=== PATIENT | female | born 2000 ===

== ENCOUNTER 2022-07-18 06:03 | Inpatient (IN) | payer OTHER ==
[~2022-07-18] VITALS: Ht 162.6 cm; Wt 70.3 kg
[2022-07-18] MEDS ORDERED: PRENATAL TABLE1 EAC1 PO (07:10)
[2022-07-22] MEDS ORDERED: FLUCONAZOLE150 MG (08:09)
== END 2022-07-22 16:45 | disposition home or self-care (01) | DRG 807 ==
LOC: LDR 06:03 → OB/GYN 07-19 03:15
PROVIDERS: ADMIT Specialist; ATTEND Specialist
PROC: 4A1HXCZ Monitoring of Products of Conception, Cardiac Rate, External Approach (ICD-10-PCS; 2022-07-18)
PROC: 10E0XZZ Delivery of Products of Conception, External Approach (ICD-10-PCS; principal; 2022-07-19)
PROC: 0W8NXZZ Division of Female Perineum, External Approach (ICD-10-PCS; 2022-07-19)
DX: O80 Encounter for full-term uncomplicated delivery (principal); Z37.0 Single live birth; Z3A.39 39 weeks gestation of pregnancy; Z20.822 Contact with and (suspected) exposure to COVID-19